=== PATIENT | female | born 1990 | race Caucasian/White ===

== ENCOUNTER 2025-02-24 16:25 | Emergency (ER) | payer OTHER, SELFPAY ==
[2025-02-24] VITALS (15 sets, daily range): BP systolic 108–128; BP diastolic 69–85; PULSE 92–125; RESP 13–22; O2SAT 98–100
--- NOTE | ~2025-02-24 | XR_ITS ---
EXAMINATION: XR chest 1V portable DATE: 02/24/2025 16:45 INDICATION: Syncope TECHNIQUE: A single frontal view of the chest was obtained. COMPARISON: None. FINDINGS: Heart size is normal. Lungs are clear of acute processes. IMPRESSION: 1. No acute findings. Reviewed, dictated and finalized at location T. ER/ASSAY TECH IMPRESSION: 1. No acute findings.
--- NOTE | 2025-02-24 16:26 | ECG_ITS ---
Test Date: 2025-02-24 16:37:46 Measurements Intervals [place] Rate: 96 P: 50 MO: 169 QRS: 16 QRSD: 90 T: 56 QT: 330 QTc: 417 Interpretive Statements SINUS RHYTHM LOW QRS VOLTAGE IN PRECORDIAL LEADS [QRS DEFLECTION < 1.0 mV IN CHEST LEADS] No previous ECG available for comparison Electronically Signed On 02-24-2025 19:08:32 ESCORT BLIND by Leo King M.D.
[2025-02-24 16:46] LABS: Hematocrit 36.1 % (37.0-47.0); Hemoglobin 12.2 g/dL (12.0-15.0); Immature Granulocyte Percent A 0.1 % (0-0.5); Lymphocytes Absolute Auto 2.13 K/mm3 (0.9-3.2); Mean Corpuscular HGB Conc 33.8 g/dl (32-36); Mean Corpuscular Hemoglobin 31.3 pg (26-34); Mean Corpuscular Volume 92.6 fl (80-100); Nucleated Red Blood Cells Absolute Auto 0.000 K/mm3 (0.0-0.012); Nucleated Red Blood Cells Perc 0.0 % (0.0-0.2); Platelet Count Result 178 k/mm3 (150-375); Red Blood Count 3.90 M/mm3 (4.2-5.4); White Blood Count 7.0 K/mm3 (4.5-10.0)
[2025-02-24 16:58] LABS: Alanine Aminotransferase 23 U/L (6-35); Albumin Level 4.3 g/dL (3.5-5.1); Alkaline Phosphatase 73 U/L (38-126); Anion Gap 9 mmol/L (4-12); Aspartate Amino Transferase 25 U/L (14-36); Bilirubin,Total 0.4 mg/dL (0.2-1.3); Blood Urea Nitrogen 20 mg/dL (7-17); Calcium 8.8 mg/dL (8.4-10.2); Carbon Dioxide 20 mmol/L (22-30); Chloride 106 mmol/L (98-107); Estimated CRCL calculation 74 ml/min; Estimated Glomerular Filt Rate > 60; Glucose 100 mg/dL (65-110); Potassium 3.8 mmol/L (3.4-5.0); Sodium 135 mmol/L (137-145); Total Protein 7.3 g/dL (6.3-8.2)
--- NOTE | 2025-02-24 17:07 | ED_ITS ---
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 History of PTSD, anxiety and depression, not on any medications. Patient report a lot of stress lately related to her boyfriend. Patient denies any fever, chills, nausea, vomiting, chest pain or shortness of breath. Patient is on weight loss medication for almost 1 year without any complication. Patient denies smoking, drinking or use drugs.. Patient had similar symptoms in the past, had negative Holter monitor and cardiac workup. Related Data Allergies Allergy/AdvReac Type Severity Reaction Status Date / Time No Known Allergies Allergy Verified 02/24/25 16:30 Review of Systems 2 Review of Systems: All systems reviewed & are unremarkable except as noted in HPI and below Exam 2 Narrative: General appearance: Well-developed, well-nourished, little anxious Skin: Normal color Head: Normocephalic, nontraumatic Eyes: Clear conjunctiva ENT: Oropharynx normal, ears normal, nose normal Neck: Supple, nontender Chest and respiratory: Airway patent, no respiratory distress, no accessory muscle use Heart: Regular rate/rhythm Abdomen: Soft, nontender, no organomegaly, quiet bowel sounds Vascular: Normal peripheral pulses, normal capillary refill. 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 is normal as tested, no gross motor deficit Course Vital Signs Vital signs: Vital Signs Pulse Rate 93 02/24/25 16:31 Respiratory Rate 21 H 02/24/25 16:31 Blood Pressure 123/69 02/24/25 16:31 Pulse Oximetry 100 02/24/25 16:31 Pulse Rate 93 02/24/25 16:31 Respiratory Rate 21 H 02/24/25 16:31 Blood Pressure 123/69 02/24/25 16:31 Pulse Oximetry 100 02/24/25 16:31 Medical Decision Making [facility] Narrative Medical decision making narrative: Patient presents with anxiety like symptoms Vital signs are stable Differential diagnosis anxiety like symptoms, hyperthyroidism, electrolyte imbalance, dehydration. Blood workup today includes CBC, CMP, TSH showed no significant abnormality Urinalysis showed no significant abnormality Urine showed negative EKG showed normal sinus rhythm Chest x-ray showed no acute abnormality Diagnosis panic attack syndrome The pt was discharged to home.the pt,s condition upon discharge was fair,education was provided to the pt in reference to the final impression,discharge study results,treatment,prognosis and need for follow up . Differential Diagnosis Differential Diagnosis: As above Vital Signs Vital Signs: Vital Signs Pulse Rate 93 02/24/25 16:31 Respiratory Rate 21 H 02/24/25 16:31 Blood Pressure 123/69 02/24/25 16:31 Pulse Oximetry 100 02/24/25 16:31 Pulse Rate 93 02/24/25 16:31 Respiratory Rate 21 H 02/24/25 16:31 Blood Pressure 123/69 02/24/25 16:31 Pulse Oximetry 100 02/24/25 16:31 Lab Data 02/24/25 16:31 02/24/25 16:31 Labs: Lab Results 02/24/25 02/24/25 02/24/25 Range/Units 16:30 16:31 17:24 WBC 7.0 (4.5-10.0) K/mm3 RBC 3.90 L (4.2-5.4) M/mm3 Hgb 12.2 (12.0-15.0) g/dL Hct 36.1 L (37.0-47.0) % MCV 92.6 (80-100) fl MCH 31.3 (26-34) pg MCHC 33.8 (32-36) g/dl RDW 12.3 (11.5-14.5) % Plt Count 178 (150-375) k/mm3 MPV 11.6 H (7.4-10.4) fl Immature Gran % (Auto) 0.1 (0-0.5) % Neut % (Auto) 63.4 (45.5-73.1) % Lymph % (Auto) 30.4 (18.3-44.2) % Placer % (Auto) 4.9 (2.6-8.5) % Eos % (Auto) 0.9 (0-4.4) % Baso % (Auto) 0.3 (0.2-1.2) % Lymph # (Auto) 2.13 (0.9-3.2) K/mm3 Placer # (Auto) 0.3 (0.1-0.6) K/mm3 Eos # (Auto) 0.1 (0-0.3) K/mm3 Baso # (Auto) 0.0 (0.0-0.1) K/mm3 Abs Immat Gran (auto) 0.01 (0.00-0.031) K/mm3 Absolute Neuts (auto) 4.5 (1.3-6.7) K/mm3 Absolute Nucleated RBC 0.000 (0.0-0.012) K/mm3 Nucleated RBC % 0.0 (0.0-0.2) % Sodium 135 L (137-145) mmol/L Potassium 3.8 (3.4-5.0) mmol/L Chloride 106 (98-107) mmol/L Carbon Dioxide 20 L (22-30) mmol/L Anion Gap 9 (4-12) mmol/L BUN 20 H (7-17) mg/dL Creatinine 1.03 H (0.7-1.0) mg/dL Estim Creat Clear Calc 74 ml/min Estimated GFR > 60 (59 - ) Glucose 100 (65-110) mg/dL Calcium 8.8 (8.4-10.2) mg/dL Total Bilirubin 0.4 (0.2-1.3) mg/dL AST 25 (14-36) U/L ALT 23 (6-35) U/L Alkaline Phosphatase 73 (38-126) U/L Total Protein 7.3 (6.3-8.2) g/dL Albumin 4.3 (3.5-5.1) g/dL TSH 0.813 Cancelled (0.465-4.680) uIU/mL Urine Color Yellow (Yellow) Urine Appearance Clear (Clear) Urine pH 6.0 (5.0-9.0) Ur Specific [place] 1.016 (1.001-1.035) Urine Protein Negative (Negative) mg/dL Urine Glucose (UA) Negative (Negative) mg/dL Urine Ketones Negative (Negative) mg/dL Ur Blood (Man) Negative (Negative) Urine Nitrate Negative (Negative) Urine Bilirubin Negative (Negative) Urine Urobilinogen 0.2 (<2.0) mg/dL Leukocyte Esterase Rfl Negative (Negative) DILLON/UL Imaging Data Radiologist's impression: Impressions Chest X-Ray 02/24/25 16:45 IMPRESSION: 1. No acute findings. ECG Data EKG #1: Attestation: I personally reviewed and interpreted this ECG as follows: ECG completion date: 02/24/25 Interpretation: Normal sinus rhythm at 96 beats per minute, low QRS voltage in the precordial leads, poor R-wave progression, anterior myocardial infarction of indeterminate age Critical Care Time Critical Care Time Critical Care Time: No Discharge Plan Discharge Clinical Impression: Palpitation, Panic anxiety syndrome Patient Disposition: Home Condition: Stable Additional Instructions: Return if symptoms are worsening , call your family physician for appointment, take Tylenol as as needed for aches and pain, continue home medications. Patient Language: Cambodian Follow-up/Referrals: Farhan,MD Mejia [Primary Care Provider, Unknown]
[2025-02-24] MEDS: LORazepam (*CRX) 1 MG TABLET PO (17:24)
[2025-02-24 17:35] LABS: Add Urine Microscopic? NO; Appearance Urine Clear (Clear); Glucose Urine UA Negative (Negative); Leukocyte Esterase Ur Negative LEU/UL (Negative); Nitrate Urine Negative (Negative); Specific Grav Ur 1.016 (1.001-1.035)
[2025-02-24 17:56] LABS: Thyroid Stimulating Hormone 0.813 uIU/mL (0.465-4.680)
--- OUTSIDE RECORDS SUMMARY | 2025-02-24 18:21 | XMS_ITS | Encounter Summary ---
Author Organization [facility] Address [address] [place] [address] Care Team Providers Care Program Support Specialist Name Role Phone Gregg Ball MD Primary Care Provider +1- [phone] Encounter Details Date Type Department Care Team (Late st Contact Info) Description 10/31/1999 Outpatient Historical [facility] Pediatrics - [facility] [address] [place] [address] Amado Ford MD NO ADDRESS ON FILE Social History Tobacco Use Types Packs/Day Years Used Date Smoking Tobacco: Never Assessed Comments No Sex and Gender Information Value Date Recorded Sex Assigned at Not on file Legal 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
--- OUTSIDE RECORDS SUMMARY | 2025-02-24 18:21 | XMS_ITS | Encounter Summary ---
Author Organization [facility] Address [address] [place] [address] Care Team Providers Care Business Development Recruiter Name Role Phone Gregg Ball MD Primary Care Provider +1- [phone] Encounter Details Date Type Department Care Team (Late st Contact Info) Description 12/16/2001 Outpatient Historical [facility] Pediatrics - [facility] [address] [address] [address] [place] [address] Amado Ford MD NO ADDRESS ON FILE Social History Tobacco Use Types Packs/Day Years Used Date Smoking Tobacco: Never Assessed Comments No Sex and Gender Information Value Date Recorded Sex Assigned at Not on file 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
--- OUTSIDE RECORDS SUMMARY | 2025-02-24 18:21 | XMS_ITS | Encounter Summary ---
Author Organization [employer] [employer] Address 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 Gender Identity Not on file Sexual Orientation Not on file documented as of this encounter Plan of Treatment Not on file documented as of this encounter Procedures Procedure Name Priority Date/Time Associated Diagnosis Comments HEMOGLOBIN AND HEMATOCRIT Stat 08/25/2008 9:30 AM CDT POC , URINE Routine 08/25/2008 9:20 AM CDT documented in this encounter Results * HEMOGLOBIN AND HEMATOCRIT (08/25/2008 9:30 AM CDT) HEMOGLOBIN 12.6 11.8 - 14.8 g/dL [facility] HEMATOCRIT 36.7 35.5 - 44.0 % [facility] 08/25/2008 9:30 AM CDT 08/25/2008 9:49 AM CDT Narrative INTERFACE SYSTEM - 08/25/2008 9:55 AM CDT room 2 us Alli Reeves MD HEMATOLOGY ORDERABLES Final R esult Performing Organization Address [facility] de Phone Number INTERFACE SYSTEM Refer to clinic/hospital department [facility] CLIA# [id number] [address] [address] * POC , URINE (08/25/2008 9:20 AM CDT) , URINE POC Negative Negative [facility] 08/25/2008 9:20 AM CDT 08/25/2008 9:20 AM CDT Alli Reeves MD POINT OF CARE TESTING Final R esult Performing Organization Address [facility] Phone Number INTERFACE SYSTEM Refer to clinic/hospital department [facility] CLIA# [id number] [address] [place] [address] documented in this encounter Visit Diagnoses Not on filedocumented in this encounter Additional Health Concerns Infection Onset Date Last Indicated Resolved Time R/O COVID-19 01/03/2021 01/03/2021 01/03/2021 2:06 PM CDT documented as of this encounter Care Teams Attic Fans Mechanic Relationship Specialty Start Date End Date Gregg Ball MD PCP - General Family Practice 12/25/21 documented as of this encounter
--- OUTSIDE RECORDS SUMMARY | 2025-02-24 18:21 | XMS_ITS | Encounter Summary ---
Author Organization [facility] Address [address] [place] [address] Care Team Providers Care Rotary Dryer Operator Name Role Phone Gregg Ball MD Primary Care Provider +1- [phone] Encounter Details Date Type Department Care Team (Late st Contact Info) Description 03/16/2003 Outpatient [facility] Pediatrics - [facility] [address] [place] [address] Amado Ford MD NO ADDRESS ON FILE Social History Tobacco Use Types Packs/Day Years Used Date Smoking Tobacco: Never Assessed Comments No Sex and Gender Information Value Date Recorded Sex Assigned at Not on file 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
--- OUTSIDE RECORDS SUMMARY | 2025-02-24 18:21 | XMS_ITS | Encounter Summary ---
Author Organization [facility] Address [address] [place] [address] Care Team Providers Care Mat Roller Name Role Phone Gregg Ball MD Primary Care Provider +1- [phone] Encounter Details Date Type Department Care Team (Late st Contact Info) Description 12/18/2000 Outpatient Historical [facility] [address] [place] [address] Amado Ford MD NO ADDRESS ON FILE Social History Tobacco Use Types Packs/Day Years Used Date Smoking Tobacco: Never Assessed Comments No Sex and Gender Information Value Date Recorded Sex Assigned at Not on file 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
--- OUTSIDE RECORDS SUMMARY | 2025-02-24 18:21 | XMS_ITS | Encounter Summary ---
Author Organization [facility] Address [address] [place] [address] Care Team Providers Care Boiler House Operator Name Role Phone Gregg Ball MD Primary Care Provider +1- [phone] Encounter Details Date Type Department Care Team (Late st Contact Info) Description 11/21/2002 Outpatient Historical [facility] [address] [place] [address] Amado Ford MD NO ADDRESS ON FILE Social History Tobacco Use Types Packs/Day Years Used Date Smoking Tobacco: Never Assessed Comments No Sex and Gender Information Value Date Recorded Sex Assigned at Not on file 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
--- OUTSIDE RECORDS SUMMARY | 2025-02-24 18:21 | XMS_ITS | Encounter Summary ---
Author Organization [facility] Address [address] [place] [address] Care Team Providers Care Guide Changer Name Role Phone Gregg Ball MD Primary Care Provider +1- [phone] Encounter Details Date Type Department Care Team (Late st Contact Info) Description 04/17/2000 Outpatient Historical [facility] [address] [place] [address] Amado Ford MD NO ADDRESS ON FILE Social History Tobacco Use Types Packs/Day Years Used Date Smoking Tobacco: Never Assessed Comments No Sex and Gender Information Value Date Recorded Sex Assigned at Not on file 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
--- OUTSIDE RECORDS SUMMARY | 2025-02-24 18:21 | XMS_ITS | Encounter Summary ---
Author Organization [facility] Address [address] [place] [address] Care Team Providers Care Manufacturing Baker Name Role Phone Gregg Ball MD Primary Care Provider +1- [phone] Encounter Details Date Type Department Care Team (Late st Contact Info) Description 02/17/2003 Outpatient Historical [facility] Pediatrics - [facility] 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
--- OUTSIDE RECORDS SUMMARY | 2025-02-24 18:21 | XMS_ITS | Encounter Summary ---
Author Organization [facility] Address [address] [place] [address] Care Team Providers Care Marketing Operations Analyst Name Role Phone Gregg Ball MD Primary Care Provider +1- [phone] Encounter Details Date Type Department Care Team (Late st Contact Info) Description 05/28/2002 Outpatient Historical 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
--- OUTSIDE RECORDS SUMMARY | 2025-02-24 18:21 | XMS_ITS | Encounter Summary ---
Author Organization [facility] Address [address] [place] [address] Care Team Providers Care Emergency Veterinary Assistant Name Role Phone Gregg Ball MD Primary Care Provider +1- [phone] Encounter Details Date Type Department Care Team (Late st Contact Info) Description 02/08/1999 Outpatient Historical [facility] Pediatrics - [facility] [address] [place] [address] Amado Ford MD NO ADDRESS ON FILE Social History Tobacco Use Types Packs/Day Years Used Date Smoking Tobacco: Never Assessed Comments No Sex and Gender Information Value Date Recorded Sex Assigned at Not on file 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
--- OUTSIDE RECORDS SUMMARY | 2025-02-24 18:21 | XMS_ITS | Clinical Summary ---
Author Organization [facility] No Chains Address [address] [place] [address] Care Team Providers Care Haulpak Driver Name Role Phone Shara Willams RN Unavailable [phone] Kylee Yañez MD Unavailable Gregg Ball MD Primary Care Provider [phone] Teresita Rose MD Unavailable [phone] Source Comments [facility],non-owned Affiliates and Associated Physician Practices is amultiple site organization consisting of ambulatory clinics and hospital sitesin [place], [place], [place]. This disclosure is being madepursuant to the Care Everywhere program and may not contain all information available regarding this patient. Last updated 17.[facility] Allergies No known active allergies Medications * Be aware that medications may not be up to date on this document. Alwaysverify current medications with the patient. albuterol HFA (PROVENTIL; VENTOLIN; PROAIR) 108 (90 Base) MCG/ACT inhaler Inhale 2 (two) puffs by mouth every 4 hours as needed 11/07/19 21 Active tretinoin (RETIN-A) 0.1 % cream Apply to affected area as needed 04/08/19 22 Active buPROPion SR 12hr (Wellbutrin-SR) 150 MG tablet Take 1 (one) tablet by mouth 2 times daily 60 tablet 2 12/28/19 22 Active semaglutide (Ozempic, 0.25 or 0.5 MG/DOSE,) 2 MG/1.5ML penIndications: Class 1 obesity with serious comorbidity and body mass index (BMI) of 34.0 to 34.9 in adult, unspecified obesity type Week 1 through week 4 take 0.25 mg once weekly; Week 5 through week 8 take 0.5 mg once weekly; Week 9 through week 12 take 1 mg once weekly; Week 13 through week 16 take 1.7 mg once weekly; Week 17 and thereafter (maintenance dosage) take 2.4 mg once weekly 6 mL 1 03/19/20 22 Active insulin pen needle (Bd Uf Iii) 31G X 8 MM needle 1 (one) Each every 7 days 10 Each 5 03/26/20 22 Active semaglutide (Wegovy) 0.5 MG/0.5ML pen Inject 0.5 (one-half) mg subcutaneously every 7 days 2 mL 1 05/01/19 23 Active semaglutide (Wegovy) 1 MG/0.5ML pen Inject 1 (one) mg subcutaneously every 7 days 2 mL 1 05/28/19 23 Active Active Problems Problem Noted Date Diagnosed Date Chest pain 03/06/2021 Heart palpitations 05/14/2020 Assessment & Plan (08/28/2020 12:18 PM CDT): Her preliminary report of her monitor was reviewed and shows NSR and Sinus arrhythmia. Average HR was 60 with no critical events and 21 stable events, await formal read. No changes. Follow up with PCP for anxiety Cardiology PRN. Assessment & Plan (07/17/2020 11:39 AM CDT): Unclear Etiology. Multiple times a day in the setting of recent trauma/anxiety, her mother suddenly in March 2020 and she did CPR on her while awaiting EMS. Suspect anxiety. She has these episodes multiple times a week. R/O arrhythmia, unclear what happened with her Holter monitor in clinic last time, per her report she returned it, we did not find her monitor enrolled in Billogram. TSH, WNL, no sleep apnea, does not drink excess ETOH or Caffeine. . ECHO with normal findings in 2019. Assessment & Plan (05/14/2020 4:54 PM CARBIDER): Unclear Etiology. Multiple times a day in the setting of recent trauma/anxiety, her mother suddenly in March 2020 and she did CPR on her while awaiting EMS. She has these episodes multiple times a day. R/O arrythmia. TSH. Pt is orthostatic in clinic, compression stockings and hydration. ECHO with normal findings in 2019. Dizziness 05/14/2020 Assessment & Plan (07/17/2020 11:40 AM CDT): Improved. No syncope or presyncope r/o arrhthymias with holter monitor. Assessment & Plan (05/14/2020 4:54 PM CARBIDER): Unclear Etiology. Multiple times a day in the setting of recent trauma/anxiety, her mother suddenly in March 2020 and she did CPR on her while awaiting EMS. She has these episodes multiple times a day. R/O arrythmia. Pt is orthostatic in clinic, compression stockings and hydration. ECHO with normal findings in 2019. BMI (body mass index), pedia tric, 85% to less than 95% for age 1102/28/2009 ACL tear 07/05/2008 Immunizations Immunization Administration Dates Next Due Adyuka primary monoval ent 12+ yr 0.3mL Purple cap 03/14/2021,04/30/2020,04/11/2020 DTaP VACCINE IM (6wk-6yrs) 12/14/1997,,08/13/1993,1992 DTaP/HIB 10/18/1993 HEP A VACCINE, ADULT 04/29/2015,10/30/2014 HEP B VACCINE, PED/ADOL 10/18/1993,01/29/1993, HIB-PRP-T 4 DOSE 04/19/1994,08/13/1993, 3 HPV VACCINE 05/19/2017,01/02/2017,10/02/2016 INFLUENZA VACCINE 01/17/2022 INFLUENZA VACCINE, CELL CULT URE, QUADR. (FLUCELVAX QUADRIVALENT; 6MO+) (CCIIV4) 01/17/2022,02/25/2021 MMR 12/14/1997,04/19/1994 POLIO IPV 10/18/1993,08/13/1993 POLIO OPV 12/14/1997,02/12/1993 TDAP (7yrs+) 10/02/2016,10/30/2014 Td (Adult), 2 Lf Tetanus Tox oid, Adsorbed, Pf 01/06/2004 Family History Medical History Relation Name Comments Hypertension Father Diabetes - Type 2 Mother Hyperlipidemia Mother Hypertension Mother Relation Name Status Comments Father Alive Mother Social History Tobacco Use Types Packs/Day Years Used Date Smoking Tobacco: Never Smokeless Tobacco: Never Tobacco Cessation:Counseling Given: Not Answered Alcohol Use Standard Drinks/Week Comments No 0 (1 standard drink = 0.6 oz pur e alcohol) PHQ-2 Answer Date Recorded PHQ2 TOTAL SCORE 0 03/19/2022 Comments No Sex and Gender Information Value Date Recorded Sex Assigned at Not on file Legal Sex Female 10:03 PM CDT Gender Identity Not on file Sexual Orientation Straight 04/23/2021 5: 10 PM CARBIDER Last Filed Vital Signs Vital Sign Reading Time Taken Comments Blood Pressure 132/62 03/19/2022 9:02 AM CARBIDER Pulse 82 03/19/2022 9:02 AM CARBIDER Temperature 36.1 C (97 F) 12/18/2021 9:36 AM CDT Respiratory Rate 16 12/18/2021 9:36 AM CDT Oxygen Saturation 98% 03/19/2022 9:02 AM CARBIDER Inhaled Oxygen Concentration - - Weight 101.2 kg (223 lb) 03/19/2022 9:02 AM CARBIDER Height 170.2 cm (5' 7) 03/19/2022 9:02 AM CARBIDER Body Mass Index 34.93 03/19/2022 9:02 AM CARBIDER Plan of Treatment Health Maintenance Due Date Last Done Comments HIV SCREENING 12/06/2007 HEPATITIS C SCREENING 12/01/2010 PAP with HPV 2022 DEPRESSION SCREENING 04/06/2024 03/19/2022, 12/18/2021, 09/18/2021 COVID-19 VACCINE ( season) 2024 03/14/2021, 04/30/2020, 04/11/2020 INFLUENZA VACCINE (#1) 2024 2, 01/17/2022, 02/25/2021 Cervical Cancer Screening 12/11/2024 PAP SMEAR 12/11/2024 12/11/2021 (Done Outside Per Report) DTAP/TDAP/TD VACCINES (8 - Td or Tdap) 10/02/2026 10/02/2016, 10/30/2014, 01/06/2004, Additional history exists ZOSTER VACCINE (1 of 2) 2042 HEPATITIS B VACCINE Completed 10/18/1993, 01/29/1993, 1992 HIB VACCINE Completed 04/19/1994, 10/04, 08/13/1993, Additional history exists HPV VACCINE Completed 05/19/2017, 12/06, 10/02/2016 MENINGOCOCCAL (Group B) VACCINE SHARED DECISION-MAKING Aged Out No longer eligible based on patient's age to complete this topic MENINGOCOCCAL GROUPS A/C/Y/W VACCINE Aged Out No longer eligible based on patient's age to complete this topic PNEUMOCOCCAL VACCINE Aged Out No long er eligible based on patient's age to complete this topic Insurance FORMERLY [facility] AET Advance Directives * Full Code (Latest Code Status on File) Date Activated Date Inactivated Comments 12/13/2013 6:49 PM 12/14/2013 5:52 PM Care Teams Haulpak Driver Relationship Specialty Start Date End Date Gregg Ball MD [facility] [address] [address] PCP - General Family Medicine 03/15/21 Shara Willams, RN Youth Counselor 12/14/13 Kylee Yañez MD [address] [place] [address] Cardiovascular Disease 03/06/21 [place] [id number] [address] Obstetrics and Gynecology 12/18/21
--- OUTSIDE RECORDS SUMMARY | 2025-02-24 18:21 | XMS_ITS | Encounter Summary ---
Author Organization [facility] Address [address] [place] [address] Care Team Providers Care Scalp Treatment Operator Name Role Phone Gregg Ball MD Primary Care Provider [phone] Encounter Details Date Type Department Care Team (Late st Contact Info) Description 01/13/2002 Outpatient Historical [facility] [address] [place] [address] Amado Ford MD NO ADDRESS ON FILE Social History Tobacco Use Types Packs/Day Years Used Date Smoking Tobacco: Never Assessed Comments No Sex and Gender Information Value Date Recorded Sex Assigned at Not on file Legal Sex Female 3:58 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
--- OUTSIDE RECORDS SUMMARY | 2025-02-24 18:21 | XMS_ITS | Encounter Summary ---
Author Organization [facility] Address [address] [place] [address] Care Team Providers Care White Sugar Supervisor Name Role Phone Shara Willams RN Unavailable [phone] Kylee Yañez MD Unavailable [phone] Gregg Ball MD Primary Care Provider [phone] Gregg Ball MD Unavailable Teresita Rose MD Unavailable Encounter Details Date Type Department Care Team (Late st Contact Info) Description 04/16/2022 Lab Requisition [facility] [address] [facility] [address] [place] [phone] [place] [address] [address] Social History Tobacco Use Types Packs/Day Years Used Date Smoking Tobacco: Never Smokeless Tobacco: Never Alcohol Use Standard Drinks/Week Comments No 0 (1 standard drink = 0.6 oz pur e alcohol) PHQ-2 Answer Date Recorded PHQ2 TOTAL SCORE 0 03/19/2022 Comments No Sex and Gender Information Value Date Recorded Sex Assigned at Not on file Legal Sex Female 10:03 PM CDT Gender Identity Not on file Sexual Orientation Straight 04/23/2021 5: 10 PM LEAD ELECTRICIAN documented as of this encounter Functional Status * Is person deaf or have serious hearing difficulty? Answer Date of Assessment Author No 12/13/2013 6:45 PM CDT Evy Montilla RN * Is person blind or have serious difficulty seeing? Answer Date of Assessment Author No 12/13/2013 6:45 PM CDT Evy Montilla RN * Does person have serious difficulty walking/climbing stairs? Answer Date of Assessment Author No 12/13/2013 6:45 PM CDT Evy Montilla RN * Does person have difficulty dressing/bathing? Answer Date of Assessment Author No 12/13/2013 6:45 PM CDT Evy Montilla RN * Does person have difficulty doing errands alone? Answer Date of Assessment Author No 12/13/2013 6:45 PM CDT Evy Montilla RN documented as of this encounter Mental Status * Does person have difficulty concentrating/remembering/making decisions? Answer Entry Date Author No 12/13/2013 6:45 PM SHAYLAT Evy Montilla RN documented in this encounter Plan of Treatment Not on file documented as of this encounter Procedures Procedure Name Priority Date/Time Associated Diagnosis Comments DERMATOPATHOLOGY Routine 04/14/2022 12:0 0 AM LEAD ELECTRICIAN documented in this encounter Results * DERMATOPATHOLOGY (04/14/2022 12:00 AM LEAD ELECTRICIAN) Case Report Dermatopathology Report Case: [id number] Authorizing Provider: Nova Wallace MD Collected: 04/14/2022 12:00 AM Ordering Location: [facility] Lab Received: 04/16/2022 07:35 AM Pathologist: Pedro Leal MD Specimen: Skin, left upper back 3 5:21 PM LEAD ELECTRICIAN DERMATOPATHOLOGY LABORATORY Final Diagnosis Specimen A. SKIN, left upper back: LENTIGINOUS MELANOCYTIC NEVUS, JUNCTIONAL TYPE, IRRITATED (D22.5) POST-INFLAMMATORY PIGMENT ALTERATION (L81.9) 3 5:21 PM LEAD ELECTRICIAN DERMATOPATHOLOGY LABORATORY at 1721 LEAD ELECTRICIAN Clinical History Nevus r/o atypia 3 5:21 PM LEAD ELECTRICIAN DERMATOPATHOLOGY LABORATORY Gross Description Specimen A: Received is one formalin filled container labeled with the patient's name and designated left upper back. The specimen consists of a shave biopsy measuring 6x6x1 mm. Jar 0. 3 5:21 PM [facility] DERMATOPATHOLOGY LABORATORY Microscopic Description Specimen A. SKIN, left upper back: This is a junctional nevus. There is melanin pigment in the stratum corneum. There is a lentiginous proliferation of melanocytes between nests of cells along the dermal-epidermal junction. There is underlying fibroplasia of the papillary dermis. (Junctional Iraj's Nevus) Sections show abundant melanin within melanophages around the superficial vascular plexus. 3 5:21 PM [facility] DERMATOPATHOLOGY LABORATORY Disclaimer An external and internal positive and negative controls are appropriate for the histochemical, immunohistochemical and immunofluorescence stain(s) in this case (if any), except where stated explicitly. The performance characteristics of the stain(s) cited in this report were developed and its performance characteristic determined by the Dermatopathology Laboratory at [facility], directed by Dr. Beverley Leal. These tests need not be, and therefore are not, approved by the [place] Food and Drug Administration. The tests are used for clinical purposes. Billing Codes Specimen Charges Stain Charges 02269 1 3 5:21 PM [facility] DERMATOPATHOLOGY LABORATORY Embedded Images 3 5:21 PM [facility] DERMATOPATHOLOGY LABORATORY Pathology/Cytolog y TISSUE SPECIMEN FROM SKIN / Unknown 04/14/2022 04/16/2022 7:35 AM LEAD ELECTRICIAN us Nova Rendon MD LAB - PATHOLOGY/CYTOLOGY ORDER DARNELL Final Result DERMATOPATHOLOGY LABORATORY [facility] - Department of Dermatology [facility] Medicine [address] [place] [address], [address] [phone] documented in this encounter Visit Diagnoses Not on filedocumented in this encounter Care Teams White Sugar Supervisor Relationship Specialty Start Date End Date Gregg Ball MD [address] [place] [address] PCP - General Family Medicine 03/15/21 Gregg Ball MD [address] [place] [phone] PCP - Attributed-[employer] STL 07/05/21 08/21/22 Shara Willams RN Vba Developer 12/14/13 Kylee Yañez MD [address] [facility] [address] [place] [address] Cardiovascular Disease 03/06/21 [place] [address] [facility] [address] [place] [address] Obstetrics and Gynecology 12/18/21 documented as of this encounter
--- OUTSIDE RECORDS SUMMARY | 2025-02-24 18:21 | XMS_ITS | Encounter Summary ---
Author Organization [facility] Address [address] [place] [address] Care Team Providers Care Facilities Planner Name Role Phone Gregg Ball MD Primary Care Provider [phone] Encounter Details Date Type Department Care Team (Late st Contact Info) Description 01/06/2004 Outpatient [facility] [address] [place] [address] Amado Ford MD NO ADDRESS ON FILE Social History Tobacco Use Types Packs/Day Years Used Date Smoking Tobacco: Never Assessed Comments No Sex and Gender Information Value Date Recorded Sex Assigned at Not on file Legal Sex Female 3:58 AM STILL CLEANER Gender Identity Not on file Sexual Orientation Not on file documented as of this encounter Plan of Treatment Not on file documented as of this encounter Visit Diagnoses Not on filedocumented in this encounter Additional Health Concerns Infection Onset Date Last Indicated Resolved Time R/O COVID-19 01/03/2021 01/03/2021 01/03/2021 2:06 PM CDT documented as of this encounter Care Teams Facilities Planner Relationship Specialty Start Date End Date Gregg Ball MD PCP - General Family Practice 12/25/21 documented as of this encounter
--- OUTSIDE RECORDS SUMMARY | 2025-02-24 18:21 | XMS_ITS | Encounter Summary ---
Author Organization [facility] Address [address] [place] [address] Care Team Providers Care Riprap Worker Name Role Phone Gregg Ball MD Primary Care Provider [phone] Encounter Details Date Type Department Care Team (Late st Contact Info) Description 01/20/2000 Outpatient Historical [facility] Pediatrics - [facility] [address] [place] [address] Amado Ford MD NO ADDRESS ON FILE Social History Tobacco Use Types Packs/Day Years Used Date Smoking Tobacco: Never Assessed Comments No Sex and Gender Information Value Date Recorded Sex Assigned at Not on file Legal Sex 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
--- OUTSIDE RECORDS SUMMARY | 2025-02-24 18:21 | XMS_ITS | Encounter Summary ---
Author Organization [facility] Address [address] [place] [address] Care Team Providers Care Delicatessen Goods Stock Clerk Name Role Phone Gregg Ball MD Primary Care Provider [phone]- [phone] Encounter Details Date Type Department Care Team (Late st Contact Info) Description 02/17/2003 Outpatient Historical [facility] Pediatrics - [facility] [address] [place] [address] Amado Ford MD NO ADDRESS ON FILE Social History Tobacco Use Types Packs/Day Years Used Date Smoking Tobacco: Never Assessed Comments No Sex and Gender Information Value Date Recorded Sex Assigned at Not on file Legal Sex Female 3:58 AM NEEDLE BAR MOLDER Gender Identity Not on file Sexual Orientation Not on file documented as of this encounter Plan of Treatment Not on file documented as of this encounter Visit Diagnoses Not on filedocumented in this encounter Additional Health Concerns Infection Onset Date Last Indicated Resolved Time R/O COVID-19 01/03/2021 01/03/2021 01/03/2021 2:06 PM CDT documented as of this encounter Care Teams Delicatessen Goods Stock Clerk Relationship Specialty Start Date End Date Gregg Ball MD PCP - General Family Practice 12/25/21 documented as of this encounter
--- OUTSIDE RECORDS SUMMARY | 2025-02-24 18:21 | XMS_ITS | Clinical Summary ---
Author Organization [employer] Jessica Epps Address [address] [place] [address] Phone Care Team Providers Care Medical Office Receptionist Assistant Name Role Phone Gregg Ball MD Primary Care Provider [phone]- [phone] Allergies Active Allergy Reactions Criticality Noted Date Comments Hydrocodone Itching Low 08/26/2010 Tramadol Itching Low 09/04/2010 Medications albuterol sulfate 90 mcg/Actuation inhaler Take 2 Puffs by inhalation every 4 hours as needed. 1 Active Contrave 8-90 mg Tablet Sustained Release TAKE 2 TABLETS BY MOUTH EVERY 12 HOURS 2 Active tretinoin (RETIN-A) 0.1 % Cream Apply to affected area. 2 Active norgestimate-et hinyl estradioL (Tri-Estarylla) 0.18/0.215/0.25 mg-35 mcg (28) tablet Take 1 Tablet by mouth daily. 84 Tablet 3 2 Active Active Problems Problem Noted Date Diagnosed Date BMI (body mass index), pedia tric, 85% to less than 95% for age 1102/28/2009 ACL tear 07/05/2008 Chest pain Resolved Problems Problem Noted Date Diagnosed Date Resolved Date Acute sinusitis, unspecified 06/08/2004 02/28/2009 Immunizations Immunization Administration Dates Next Due (ACTHIB/HIBERIX)(2 MOS-5 YRS /6 WKS-4 YRS) HAEMOPHILUS INFLUENZAE TYPE B VACCINE (HIB), PRP-T CONJUGATE, 4 DOSE, 0.5 ML IM 04/19/1994,08/13/1993,02/12/1993 (ADACEL/BOOSTRIX)(10 YR UP) TDAP VACCINE, 0.5ML, IM 10/30/2014 (INFANRIX)(6 WKS-6 YRS) DIPT HERIA, TETANUS TOXOIDS, AND ACCELLULAR PERTUSSIS VACCINE (DTAP), 0.5 ML IM 12/14/1997,10/03/1995,08/13/1993,1992 (IPOL)(6 WKS AND UP) POLIOVI HILARIO VACCINE, INACTIVATED (IPV), 3 DOSE, SUBCUT OR IM 10/18/1993,08/13/1993 (M-M-R II/PRIORIX)(12 MO UP) MEASLES, MUMPS AND RUBELLA VIRUS VACCINE, 0.5 ML IM/SUBCUT 12/14/1997,04/19/1994 (PFIZER)(12 YR UP) COVID-19 VACCINE - EMERGENCY USE AUTHORIZATION, MRNA, [id number](PF) 30 MCG/0.3 ML IM SUSP 04/30/2020,04/11/2020 (RECOMBIVAX HB/ENGERIX-B)(0- 19 YRS) HEPATITIS B VACCINE 5 MCG/0.5 ML OR 10 MCG/0.5 ML PED OR ADOL 3 DOSE (PF), IM 10/18/1993,01/29/1993,1992 (TDVAX)(7 YRS UP) TETANUS AN D DIPHTHERIA TOXOIDS, ADSORBED (2 LF OF TETANUS TOXOID AND 2 LF OF DIPHTHERIA TOXOID), 0.5ML (PF), IM 01/06/2004 DTP IM 10/03/1995,08/13/1993,02/12/1993 DTaP Hib Combined Vaccine IM 10/18/1993 Hepatitis A Vaccine 04/29/2015,10/30/2014 Poliovirus Vaccine Live Oral 12/14/1997,02/12/19 93 Skin Test TB 10/29/2015,10/30/2014 Family History Medical History Relation Name Comments Healthy Father Hypertension Father Cancer Maternal Grandfather Healthy Mother Heart Disease Mother Relation Name Status Comments Father Alive Maternal Grandfather Mother Social History Tobacco Use Types Packs/Day Years Used Date Smoking Tobacco: Never Smokeless Tobacco: Never Tobacco Cessation:Counseling Given: No Alcohol Use Standard Drinks/Week Comments Not Currently 0 (1 standard drink = 0.6 oz pur e alcohol) Rare Comments No Sex and Gender Information Value Date Recorded Sex Assigned at Not on file Legal Sex Female 3:58 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 Gender Identity Not on file Sexual Orientation Not on file Last Filed Vital Signs Vital Sign Reading Time Taken Comments Blood Pressure 102/84 12/11/2021 12:08 PM CDT Pulse 48 03/12/2021 8:20 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 Temperature 36.1 C (97 F) 03/12/2021 8:13 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 Respiratory Rate 16 03/12/2021 8:13 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 Oxygen Saturation 100% 03/12/2021 8:20 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 Inhaled Oxygen Concentration - - Weight 98 kg (216 lb 0.8 oz) 12/11/2021 12:08 PM CDT Height 167.6 cm (5' 6) 12/11/2021 12:08 PM CDT Body Mass Index 34.87 12/11/2021 12:08 PM CDT Plan of Treatment Health Maintenance Due Date Last Done Comments HPV/Cotest (21-29) 2013 HPV/Cotest (30-65) 2022 INFLUENZA VACCINE (#1) 2024 02/25/2021 COVID-19 Vaccine (2024-2 6 season) 2024 03/14/2021, 04/30/2020, 04/11/2020 CERVICAL CANCER SCREENING 12/11/2024 PAP SMEAR 12/11/2024 12/11/2021, 10/05/2017 DTAP/TDAP/TD VACCINES (8 - T d or Tdap) 10/02/2026 10/02/2016, 10/30/2014, 01/06/2004, Additional history exists HEPATITIS B VACCINES Completed 10/18/1993, 01/29/1993, 1992 HPV VACCINES Completed 05/19/2017, 12/06, 10/02/2016 Medical Devices Implanted Type Area Allergist/Immunologist Device Identifier Shelf Expiration Date Model / Serial / Lot Log [id number] - Arthrex Acl Tray - 1 - Screw Bio-Interferenc e 8x28mm [id number] Implanted:Qty: 2 on 09/04/2010 at [facility] Screw Right: Knee [employer] 04/05/2012 [id number] / / [id number] - [employer] - 1 - Tendon Tib Kwan Quad [id number] Implanted:Qty: 1 on 09/04/2010 at [facility] Tendon Right: Knee [employer] 02/11/2015 [id number] / [id number] / Procedures Procedure Name Priority Date/Time Associated Diagnosis Comments CERV/VAG CYTO AGE BASED SCREEN PAP W CT/NG Routine 12/11/2021 12:00 AM CDT Well woman exam with routine gynecological exam from Last 3 Months or Most Recently Relevant to Health Maintenance Results * CERV/VAG CYTO AGE BASED SCREEN PAP W CT/NG (12/11/2021 12:00 AM CDT) COMMENT (PAP): [facility] [place] Comment: This order for age-based cervical cancer and STI screening follows ACOG guidelines(PB 168, 140, DSJ925). See individual assays for performing site location. CLINICAL INFORMATION [facility] [place] Comment:Information not prov ided LAST MENSTRUAL PERIOD [facility] [place] Comment:Information not prov ided PREV PAP: [facility] [place] Comment:Information not prov ided PREV BX: [facility] [place] Comment:Information not prov ided SOURCE [facility] [place] Comment:Endocervix ADEQUACY: [facility] [place] Comment: Satisfactory for evaluation. Endocervical/transformation zone component present. Age and/or menstrual status not provided PAP INTERP [facility] [place] Comment:Negative for intraep ithelial lesion or malignancy. COMMENT (PAP TEST) [facility] [place] Comment: This Pap test has been evaluated with computer assisted technology. STOPER: [facility] [place] Comment: OLENA, CT(ASCP) CT screening location: [place] [address] [place] [address] EXPLANATORY NOTE [facility] [place] Comment: EXPLANATORY NOTE: The Pap is a screening test for cervical cancer. It is not a diagnostic test and is subject to false negative and false positive results. It is most reliable when a satisfactory sample, regularly obtained, is submitted with relevant clinical findings and history, and when the Pap result is evaluated along with historic and current clinical information. C TRAC RNA NOT DETECTED NOT DETECTED [facility] [place] N.GONORRHOEAE RNA, TMA NOT DETECTED NOT DETECTED [facility] [place] COMMENT INFECTIOUS DISEASE [facility] [place] Comment: The analytical performance characteristics of this assay, when used to test SurePath(TM) specimens have been determined by [facility]. The modifications have not been cleared or approved by the FDA. This assay has been validated pursuant to the CLIA regulations and is used for clinical purposes. For additional information, please refer to https://education.[employer]faq/PRL641 (This link is being provided for information/ educational purposes only.) Test Performed at: [facility] [id number] [id number] Dilip Villagomez D.O., MPH SL Genital SWAB OF ENDOCERVIX / Unknown 12/11/2021 12/12/2021 7:32 AM CDT Teresita Rose MD PATHOLOGY/CYTOLOGY ORDERABL ES Final Result [facility] [phone] [facility] [address] [id number] from Last 3 Months or Most Recently Relevant to Health Maintenance Insurance * Guarantor: Janae Redding Account Type Relation to Patient Date of Phone Billing Address Personal/Family Self 1990 [phone] [employer] (Work) [address] [place] [address] [employer] [facility] Commercial [employer] OPEN CHOICE PPO Advance Directives For more information, please contact: [phone] * Default Full Code - Needs Discussion (Latest Code Status on File) Date Activated Date Inactivated Comments 12/31/2020 10:11 AM 12/31/2020 5:16 PM * Full Code Date Activated Date Inactivated Comments 12/30/2018 7:31 AM 12/30/2018 7:36 PM * Full Code Date Activated Date Inactivated Comments 09/04/2010 5:27 PM 09/05/2010 12:51 PM * Full Code Date Activated Date Inactivated Comments 09/04/2010 1:38 PM 09/04/2010 5:27 PM Care Teams Medical Office Receptionist Assistant Relationship Specialty Start Date End Date Gregg Ball MD PCP - General Family Practice 12/25/21
--- OUTSIDE RECORDS SUMMARY | 2025-02-24 18:21 | XMS_ITS | Encounter Summary ---
Author Organization [facility] Address [address] [place] [address] Care Team Providers Care Education General Manager Name Role Phone Gregg Ball MD Primary Care Provider +1- [phone] Encounter Details Date Type Department Care Team (Late st Contact Info) Description 07/12/[address] 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
[2025-02-27 11:47] LABS: BEDSIDEPREGUCG Negative (Negative)
== END 2025-02-24 19:16 | disposition home or self-care (01) ==
PROVIDERS: Emergency Provider Emergency Medicine; PCP Family Medicine
DX: F41.0 Panic disorder [episodic paroxysmal anxiety] (principal); R00.2 Palpitations
CPT/HCPCS: 36415; 71045; 80053; 81003; 81025; 84443; 85025; 93005; 99283; A9270